=== PATIENT | female | born 1985 | race Caucasian/White ===

== ENCOUNTER → 2023-07-30 09:48 | Outpatient (REF) | payer OTHER, SELFPAY | LOC: PNTC 09:48 | PROVIDERS: ATTENDING PHYSICIAN Obstetrics & Gynecology | DX: O09.529 Supervision of elderly multigravida, unspecified trimester (principal); O99.210 Obesity complicating pregnancy, unspecified trimester | CPT/HCPCS: 76811 ==

== ENCOUNTER → 2023-09-10 13:48 | Outpatient (REF) | payer OTHER, SELFPAY | LOC: PNTC 13:48 | PROVIDERS: ATTENDING PHYSICIAN Obstetrics & Gynecology | DX: O09.529 Supervision of elderly multigravida, unspecified trimester (principal); O99.210 Obesity complicating pregnancy, unspecified trimester | CPT/HCPCS: 76816 ==

== ENCOUNTER → 2023-10-26 13:24 | Outpatient (REF) | payer OTHER, SELFPAY | LOC: PNTC 13:24 | PROVIDERS: ATTENDING PHYSICIAN Obstetrics & Gynecology | DX: O09.519 Supervision of elderly primigravida, unspecified trimester (principal); O99.210 Obesity complicating pregnancy, unspecified trimester | CPT/HCPCS: 76816 ==

== ENCOUNTER → 2023-11-16 13:52 | Outpatient (REF) | payer OTHER, SELFPAY | LOC: PNTC 13:52 | PROVIDERS: ATTENDING PHYSICIAN Obstetrics & Gynecology | DX: O09.519 Supervision of elderly primigravida, unspecified trimester (principal); O99.210 Obesity complicating pregnancy, unspecified trimester | CPT/HCPCS: 59025; 76815 ==

== ENCOUNTER → 2023-11-23 13:34 | Outpatient (REF) | payer OTHER, SELFPAY | LOC: PNTC 13:34 | PROVIDERS: ATTENDING PHYSICIAN Obstetrics & Gynecology | DX: O09.529 Supervision of elderly multigravida, unspecified trimester (principal); O99.210 Obesity complicating pregnancy, unspecified trimester | CPT/HCPCS: 36415; 59025; 76816 ==

== ENCOUNTER 2023-11-30 14:06 | Observation (INO) | payer OTHER, SELFPAY ==
[2023-11-30 14:17] VITALS: BP 120/65; BMI 38.4
[2023-11-30 15:14] LABS: ALT (SGPT) 17 U/L (0-35); AST (SGOT) 19 U/L (14-36)
[2023-12-02 18:22] LABS: Bile Acids (Cholylglycine) 4 umol/L (0-10)
== END 2023-11-30 14:55 | disposition home or self-care (01) ==
LOC: PNTC-IN 14:06
PROVIDERS: ADMITTING PHYSICIAN Obstetrics & Gynecology
DX: O99.213 Obesity complicating pregnancy, third trimester (principal); Z3A.37 37 weeks gestation of pregnancy; O09.523 Supervision of elderly multigravida, third trimester; Z88.6 Allergy status to analgesic agent; Z88.0 Allergy status to penicillin
CPT/HCPCS: 59025; 76815; 82239; 84450; 84460; G0378

== ENCOUNTER → 2023-12-07 13:29 | Outpatient (REF) | payer OTHER, SELFPAY | LOC: PNTC 13:29 | PROVIDERS: ATTENDING PHYSICIAN Obstetrics & Gynecology | DX: O09.519 Supervision of elderly primigravida, unspecified trimester (principal); O99.210 Obesity complicating pregnancy, unspecified trimester | CPT/HCPCS: 59025; 76815; 76818 ==

== ENCOUNTER 2023-12-10 19:35 | Inpatient (IN) | payer OTHER, SELFPAY ==
[2023-12-10] MEDS: LR 1000 IV (19:49)
[2023-12-10 19:56] VITALS: BP 138/83; BMI 39.2
[2023-12-10 20:31] LABS: % Basophils 0.3 % (0-2); % Eosinophils 0.5 % (0-6); % Immature Granulocytes 0.3 % (0-0.5); % Lymphocytes 22.2 % (20.5-51.1); % Monocytes 7.4 % (1.7-9.3); % Neutrophils 69.3 % (42.2-75.2); Absolute Lymphocytes 1.9 10^3/uL (1.2-3.4); Absolute Monocytes 0.7 10^3/uL (0.1-0.6); Absolute Neutrophils 6.1 10^3/uL (1.4-6.5); Hemoglobin 11.1 g/dL (12.0-16.0); Mean Corp Hgb Conc. 34.7 g/dL (33.0-37.0); Mean Corpuscular Hgb 27.9 pg (27.0-31.0); Mean Corpuscular Volume 80.4 fL (81.0-99.0); Mean Platelet Volume 12.4 fL (7.4-10.4); Nucleated Red Blood Cells % 0 %; Platelet Count 229 10^3/uL (130-400); Red Blood Cell Count 3.98 10^6/uL (4.20-5.40); Red Cell Dist. Width 13.2 % (11.5-14.5); White Blood Cell Count 8.7 10^3/uL (4.8-10.8)
[2023-12-10] MEDS: CYTOTEC 25 MICROGRAM VAG (20:40)
[2023-12-11] MEDS: CYTOTEC 50 MICROGRAM PO (00:51)
[2023-12-11] MEDS: LR 1000 IV (01:37)
[2023-12-11] MEDS: MORPHINE SULFATE 2 MG IV (01:37)
[2023-12-11] MEDS: FENTANYL/BUPIVACAINE 100 EPIDURAL (04:03)
[2023-12-11] MEDS: SUBLIMAZE 100 MCG EPIDURAL (04:03)
[2023-12-11] MEDS: PITOCIN 30 UNITS/NSS 500 ML IV (05:09)
[2023-12-11] MEDS: CYTOTEC PO (06:50)
[2023-12-11] MEDS: MOTRIN 600 MG PO ×2 (14:48→21:23)
[2023-12-11] MEDS: PRENATAL PLUS 1 TABLET PO (21:33)
[2023-12-12] MEDS: MOTRIN 600 MG PO ×2 (03:30→09:21)
[2023-12-12 05:23] LABS: Hematocrit 31.8 % (37.0-47.0)
[2023-12-12] MEDS: PRENATAL PLUS 1 TABLET PO (08:21)
[2023-12-12] MEDS: ADACEL 0.5 ML IM (09:08)
[2023-12-12] MEDS: M-M-R II 0.5 ML SC (09:11)
[2023-12-15 11:49] LABS: Syphilis/T. pallidum Ab Reflex Negative (Negative)
== END 2023-12-12 13:00 | disposition home or self-care (01) | DRG 807 ==
LOC: LDRP 19:35
PROVIDERS: ADMITTING PHYSICIAN Obstetrics & Gynecology
PROC: 3E0P7VZ Introduction of Hormone into Female Reproductive, Via Natural or Artificial Opening (ICD-10-PCS; 2023-12-10)
PROC: 10E0XZZ Delivery of Products of Conception, External Approach (ICD-10-PCS; 2023-12-11)
PROC: 0HQ9XZZ Repair Perineum Skin, External Approach (ICD-10-PCS; 2023-12-11)
PROC: 10907ZC Drainage of Amniotic Fluid, Therapeutic from Products of Conception, Via Natural or Artificial Opening (ICD-10-PCS; 2023-12-11)
DX: O70.0 First degree perineal laceration during delivery (principal); Z37.0 Single live birth; Z3A.39 39 weeks gestation of pregnancy
CPT/HCPCS: 85014; 85018; 85025; 86780; 86850; 86900; 86901; 90707; 90715